=== PATIENT | female | born 1965 | race Hispanic/Latino ===

== ENCOUNTER 2018-04-29 10:18 | Emergency (ER) | payer MEDICARE, MEDICAID ==
[~2018-04-29] VITALS: Ht 152.4 cm; Wt 55.0 kg
[~2018-04-29 10:18] MED LIST: ALBUTEROL SUL0.083 % IN; AZITHROMYCIN500 MG PO; AZO DINE PO; CIPROFLOXACN500 MG PO; CLINDAMYCIN300 M1 PO; DIFLUCAN150 MG PO; FLEXERIL OR; LISINOPRIL5 MG PO; MACRODANTIN100 MG PO; MEDDOSEPAK PO; METFORMIN500 MG PO; MONISTAT 7 VA; NAPROSYN375 MG PO; NAPROXEN; OXYCODONE HCL5 MG PO; PCE500 MG OR; PRILOSEC20 MG/CAP PO; PROMETHAZINE25 MG OR; PYRIDIUM200 MG PO; TYLENOL # 31 TA1 PO; ULTRAM50 M1 PO; ULTRAM50 MG OR; VENTOLIN HFA IN; [UNRECOGNIZED DRUG - REMARK]; [UNRECOGNIZED DRUG - REMARK]
[2018-04-29 10:43] LABS: HEMATOCRIT 40.3 % (37.0-47.0); HEMOGLOBIN 13.2 g/dl (12.0-16.0); IMMATURE GRANULOCYTES 0.4 % (0.0-5.0); MEAN CORPUSCULAR HGB 30.1 pG CALC (26.0-32.0); MEAN CORPUSCULAR HGB CONC 32.8 g/L CALC (32.0-36.0); NEUT# 7.64 thou/uL (2.00-7.15); RED BLOOD COUNT 4.38 mill/uL (4.20-5.60); RED CELL DISTRI WIDTH 14.1 % (11.5-15.5)
[2018-04-29 11:13] LABS: ALBUMIN 4.1 g/dL (3.2-5.0); ALKALINE PHOSPHATASE 125 u/l (38-126); ANION GAP 11 (6-22 (CALC)); BILIRUBIN, TOTAL 0.5 mg/dL (0.0-1.4); BUN 24 mg/dL (7-17); BUN/CREATININE RATIO 50 (12-20 (CALC)); CARBON DIOXIDE 29 mmol/l (22-30); CHLORIDE 105 mmol/l (95-108); CPK 62 u/l (30-165); CREATININE 0.5 mg/dL (0.5-1.0); GFR > 60 ML/MIN (>=60 (CALC)); GFR FOR AFR.AMER. > 60 ML/MIN (>=60 (CALC)); LIPASE 101 u/l (23-300); SGOT/AST 23 u/l (14-36); SODIUM 141 mmol/l (137-146); TOTAL PROTEIN 7.3 g/dL (6.3-8.2)
[2018-04-29 11:16] LABS: ETHYL ALCOHOL 0 mg/dl (0-30)
[2018-04-29 11:23] LABS: MYOGLOBIN 22 ng/mL (0 - 62)
[2018-04-29 11:35] LABS: URINE BILIRUBIN - DIPSTICK NEGATIVE (NEGATIVE); URINE BLOOD DIPSTICK NEGATIVE (NEGATIVE); URINE COLOR YELLOW; URINE GLUCOSE - DIPSTICK NEGATIVE (NEGATIVE); URINE KETONE NEGATIVE (NEGATIVE); URINE PROTEIN - DIPSTICK NEGATIVE (NEG-TRACE); URINE SPECIFIC GRAVITY 1.025
[2018-04-29 11:37] LABS: URINE CLARITY SL CLOUDY; URINE LEUK ESTERASE LARGE (NEGATIVE); URINE NITRITE - DIPSTICK POSITIVE (Negative)
[2018-04-29 11:40] LABS: BARBITURATES NEGATIVE (NEGATIVE); COCAINE NEGATIVE (NEGATIVE); METHADONE NEGATIVE (NEGATIVE); OXCYCODONE NEGATIVE (NEGATIVE); TETRAHYDROCANNABIONOL NEGATIVE (NEGATIVE); TRICYLIC ANTIDEPRESSANTS NEGATIVE (NEGATIVE)
[2018-04-29 11:42] LABS: URINE BACTERIA MANY hpf; URINE TRANSITIONAL EPI. CELLS FEW hpf; URINE WBC 50-100 WBC/hpf (0-5)
[2018-04-29 11:43] LABS: URINE SQUAMOUS EPITHELIAL CELL MODERATE EPI/hpf (0-FEW)
[2018-04-29] MEDS ORDERED: BACTRIM DS1 TAB PO (12:01)
[2018-04-29 12:06] VITALS: BP 158/74
== END 2018-04-29 12:13 | disposition home or self-care (01) ==
LOC: ED 10:18
PROVIDERS: Family Medicine
DX: F15.10 Other stimulant abuse, uncomplicated (principal); N39.0 Urinary tract infection, site not specified; B95.61 Methicillin susceptible Staphylococcus aureus infection as the cause of diseases classified elsewhere; R41.82 Altered mental status, unspecified; Y92.481 Parking lot as the place of occurrence of the external cause; F17.200 Nicotine dependence, unspecified, uncomplicated; E11.9 Type 2 diabetes mellitus without complications

== ENCOUNTER → 2018-09-05 | Outpatient (REF) | payer OTHER ==
[~2018-09-05] MED LIST changes: +BACTRIM DS1 TAB PO; +CALCIUM600 M3 PO; +FUROSEMIDE20 MG PO; +HUMALOG100 UNIT/M SC; +K-DUR/KLOR-CON20 MEQ PO; +LANTUS100 UNIT/M SC; +MAGNESIUM500 M1 PO; +METOPROL TAR25 MG PO; +SERTRALINE HCL50 MG PO; +STOOL SOFTNR100 M1 PO; +TYLENOL 500MG TAB PO; +WARFARIN5 MG PO; +WARFARIN7.5 MG PO
== END | disposition home or self-care (01) | DRG 917 ==
LOC: LABSPEC 05:03
PROVIDERS: ATTEND Internal Medicine
DX: T36.95XA Adverse effect of unspecified systemic antibiotic, initial encounter (principal); A41.9 Sepsis, unspecified organism; Z79.2 Long term (current) use of antibiotics

== ENCOUNTER → 2018-09-09 | Outpatient (REF) | payer OTHER | END | disposition home or self-care (01) | DRG 195 | LOC: LABSPEC-NH 14:52 | PROVIDERS: ATTEND Internal Medicine | DX: J18.9 Pneumonia, unspecified organism (principal) ==

== ENCOUNTER → 2018-09-11 | Outpatient (REF) | payer OTHER | END | disposition home or self-care (01) | DRG 950 | LOC: LABSPEC 18:34 | PROVIDERS: ATTEND Internal Medicine | DX: Z51.81 Encounter for therapeutic drug level monitoring (principal); Z79.2 Long term (current) use of antibiotics ==

== ENCOUNTER → 2018-09-14 | Outpatient (REF) | payer OTHER ==
[2018-09-14 12:03] LABS: PROTHROMBIN TIME 16.6 SECONDS (9.0-12.5)
[2018-09-14 12:04] LABS: INTERNATIONAL NORMALIZED RATIO 1.6 RATIO (0.7-1.3)
== END | disposition home or self-care (01) | DRG 310 ==
LOC: LABSPEC-NH 11:36
PROVIDERS: ATTEND Internal Medicine
DX: I48.91 Unspecified atrial fibrillation (principal)

== ENCOUNTER 2018-09-21 10:41 | Inpatient (IN) | payer MEDICARE, MEDICAID ==
[2018-09-21] VITALS (10 sets, daily range): BP systolic 91–124; BP diastolic 65–83
[~2018-09-21] VITALS: Ht 152.4 cm; Wt 62.0 kg
[~2018-09-21 10:41] MED LIST changes: -CALCIUM600 M3 PO; -FUROSEMIDE20 MG PO; -HUMALOG100 UNIT/M SC; -K-DUR/KLOR-CON20 MEQ PO; -LANTUS100 UNIT/M SC; -MAGNESIUM500 M1 PO; -METOPROL TAR25 MG PO; -SERTRALINE HCL50 MG PO; -STOOL SOFTNR100 M1 PO; -TYLENOL 500MG TAB PO; -WARFARIN5 MG PO; -WARFARIN7.5 MG PO
[2018-09-21] MEDS ORDERED: STOOL SOFTNR100 M1 PO (11:05)
[2018-09-21] MEDS ORDERED: SERTRALINE HCL50 MG PO (11:06)
[2018-09-21] MEDS ORDERED: FUROSEMIDE20 MG PO (11:07)
[2018-09-21] MEDS ORDERED: LANTUS100 UNIT/M SC (11:07)
[2018-09-21] MEDS ORDERED: CALCIUM600 M3 PO (11:08)
[2018-09-21] MEDS ORDERED: MAGNESIUM500 M1 PO (11:09)
[2018-09-21] MEDS ORDERED: HUMALOG100 UNIT/M SC (11:10)
[2018-09-21] MEDS ORDERED: METOPROL TAR25 MG PO (11:11)
[2018-09-21] MEDS ORDERED: WARFARIN5 MG PO (11:12)
[2018-09-21] MEDS ORDERED: K-DUR/KLOR-CON20 MEQ PO (11:12)
[2018-09-21] MEDS ORDERED: TYLENOL 500MG TAB PO (11:13)
[2018-09-21 11:17] LABS: HEMATOCRIT 34.9 % (37.0-47.0); IMMATURE GRANULOCYTES 0.7 % (0.0-5.0); MEAN CELL VOLUME 88.6 fL CALC (80.0-100.0); MEAN CORPUSCULAR HGB 28.2 pG CALC (26.0-32.0); MEAN CORPUSCULAR HGB CONC 31.8 g/L CALC (32.0-36.0); NEUT# 17.74 thou/uL (2.00-7.15); RED BLOOD COUNT 3.94 mill/uL (4.20-5.60); RED CELL DISTRI WIDTH 16.8 % (11.5-15.5)
[2018-09-21 11:27] LABS: HEMOGLOBIN 11.1 g/dl (12.0-16.0)
[2018-09-21 11:38] LABS: INTERNATIONAL NORMALIZED RATIO 2.2 RATIO (0.7-1.3); PROTHROMBIN TIME 22.4 SECONDS (9.0-12.5)
[2018-09-21 11:39] LABS: ALBUMIN 4.2 g/dL (3.2-5.0); ALKALINE PHOSPHATASE 125 u/l (38-126); ANION GAP 19 (6-22 (CALC)); BILIRUBIN, TOTAL 1.1 mg/dL (0.0-1.4); BUN 20 mg/dL (7-17); BUN/CREATININE RATIO 28 (12-20 (CALC)); CARBON DIOXIDE 22 mmol/l (22-30); CHLORIDE 98 mmol/l (95-108); CREATININE 0.7 mg/dL (0.5-1.0); GFR > 60 ML/MIN (>=60 (CALC)); GFR FOR AFR.AMER. > 60 ML/MIN (>=60 (CALC)); SGOT/AST 32 u/l (14-36); SODIUM 135 mmol/l (137-146); TOTAL PROTEIN 8.5 g/dL (6.3-8.2)
[2018-09-21 11:51] LABS: C-REACTIVE PROTEIN 21.6 mg/dL (0-0.9)
[2018-09-21 13:09] LABS: URINE BILIRUBIN - DIPSTICK NEGATIVE (NEGATIVE); URINE BLOOD DIPSTICK NEGATIVE (NEGATIVE); URINE COLOR YELLOW; URINE GLUCOSE - DIPSTICK NEGATIVE (NEGATIVE); URINE KETONE NEGATIVE (NEGATIVE); URINE LEUK ESTERASE TRACE (NEGATIVE); URINE NITRITE - DIPSTICK NEGATIVE (Negative); URINE PROTEIN - DIPSTICK TRACE mg/dL (NEG-TRACE); URINE UROBILINOGEN - DIPSTICK 0.2 E.U./dL (0.2)
[2018-09-21 13:11] LABS: BARBITURATES NEGATIVE (NEGATIVE); COCAINE NEGATIVE (NEGATIVE); METHADONE NEGATIVE (NEGATIVE); OXCYCODONE NEGATIVE (NEGATIVE); TETRAHYDROCANNABIONOL NEGATIVE (NEGATIVE); TRICYLIC ANTIDEPRESSANTS NEGATIVE (NEGATIVE)
[2018-09-21] MEDS ORDERED: WARFARIN7.5 MG PO (15:35)
[2018-09-22] VITALS (18 sets, daily range): BP systolic 100–145; BP diastolic 62–90
[2018-09-22 05:35] LABS: HEMOGLOBIN 10.2 g/dl (12.0-16.0); IMMATURE GRANULOCYTES 0.5 % (0.0-5.0); MEAN CELL VOLUME 88.2 fL CALC (80.0-100.0); MEAN CORPUSCULAR HGB 28.1 pG CALC (26.0-32.0); MEAN CORPUSCULAR HGB CONC 31.9 g/L CALC (32.0-36.0); NEUT# 14.21 thou/uL (2.00-7.15); RED BLOOD COUNT 3.63 mill/uL (4.20-5.60)
[2018-09-22 05:42] LABS: ALKALINE PHOSPHATASE 104 u/l (38-126); AMYLASE < 30 u/l (30-110); ANION GAP 12 (6-22 (CALC)); BUN 13 mg/dL (7-17); BUN/CREATININE RATIO 24 (12-20 (CALC)); CARBON DIOXIDE 21 mmol/l (22-30); CHLORIDE 105 mmol/l (95-108); CREATININE 0.5 mg/dL (0.5-1.0); GFR > 60 ML/MIN (>=60 (CALC)); GFR FOR AFR.AMER. > 60 ML/MIN (>=60 (CALC)); LIPASE 126 u/l (23-300); MAGNESIUM 1.5 mg/dL (1.6-2.3); POTASSIUM 3.7 mmol/l (3.5-5.1); SGOT/AST 20 u/l (14-36); SODIUM 135 mmol/l (137-146)
[2018-09-22 05:53] LABS: ALBUMIN 3.1 g/dL (3.2-5.0); TOTAL PROTEIN 6.4 g/dL (6.3-8.2)
[2018-09-22 14:17] LABS: PROTHROMBIN TIME 31.2 SECONDS (9.0-12.5)
[2018-09-23] VITALS (18 sets, daily range): BP systolic 123–166; BP diastolic 69–94
[2018-09-23 01:33] LABS: HEMATOCRIT 32.2 % (37.0-47.0); HEMOGLOBIN 10.1 g/dl (12.0-16.0); IMMATURE GRANULOCYTES 0.3 % (0.0-5.0); MEAN CORPUSCULAR HGB 27.9 pG CALC (26.0-32.0); MEAN CORPUSCULAR HGB CONC 31.4 g/L CALC (32.0-36.0); NEUT# 11.24 thou/uL (2.00-7.15); RED BLOOD COUNT 3.62 mill/uL (4.20-5.60); RED CELL DISTRI WIDTH 16.9 % (11.5-15.5)
[2018-09-23 01:46] LABS: INTERNATIONAL NORMALIZED RATIO 3.3 RATIO (0.7-1.3); PROTHROMBIN TIME 33.8 SECONDS (9.0-12.5)
[2018-09-23 01:52] LABS: ALBUMIN 3.4 g/dL (3.2-5.0); ALKALINE PHOSPHATASE 112 u/l (38-126); ANION GAP 15 (6-22 (CALC)); BILIRUBIN, TOTAL 0.8 mg/dL (0.0-1.4); BUN 10 mg/dL (7-17); BUN/CREATININE RATIO 20 (12-20 (CALC)); CARBON DIOXIDE 19 mmol/l (22-30); CHLORIDE 106 mmol/l (95-108); CREATININE 0.5 mg/dL (0.5-1.0); GFR > 60 ML/MIN (>=60 (CALC)); GFR FOR AFR.AMER. > 60 ML/MIN (>=60 (CALC)); MAGNESIUM 1.6 mg/dL (1.6-2.3); POTASSIUM 3.5 mmol/l (3.5-5.1); SGOT/AST 21 u/l (14-36); SODIUM 136 mmol/l (137-146); TOTAL PROTEIN 7.1 g/dL (6.3-8.2)
[2018-09-24] VITALS (10 sets, daily range): BP systolic 100–149; BP diastolic 60–85
[2018-09-24 04:35] LABS: HEMOGLOBIN 9.2 g/dl (12.0-16.0); IMMATURE GRANULOCYTES 0.3 % (0.0-5.0); MEAN CELL VOLUME 87.6 fL CALC (80.0-100.0); MEAN CORPUSCULAR HGB 27.8 pG CALC (26.0-32.0); MEAN CORPUSCULAR HGB CONC 31.7 g/L CALC (32.0-36.0); NEUT# 6.27 thou/uL (2.00-7.15); RED BLOOD COUNT 3.31 mill/uL (4.20-5.60)
[2018-09-24 04:58] LABS: ALBUMIN 3.1 g/dL (3.2-5.0); ALKALINE PHOSPHATASE 106 u/l (38-126); ANION GAP 14 (6-22 (CALC)); BILIRUBIN, TOTAL 0.7 mg/dL (0.0-1.4); BUN 8 mg/dL (7-17); BUN/CREATININE RATIO 18 (12-20 (CALC)); CARBON DIOXIDE 21 mmol/l (22-30); CHLORIDE 107 mmol/l (95-108); CREATININE 0.5 mg/dL (0.5-1.0); GFR > 60 ML/MIN (>=60 (CALC)); GFR FOR AFR.AMER. > 60 ML/MIN (>=60 (CALC)); MAGNESIUM 1.6 mg/dL (1.6-2.3); SGOT/AST 22 u/l (14-36); SODIUM 138 mmol/l (137-146); TOTAL PROTEIN 6.3 g/dL (6.3-8.2)
== END 2018-09-24 13:50 | DRG 314 ==
LOC: ED 10:41 → ED-I 13:40 → ED 14:58 → MS2 14:59 → ICU 16:36
PROVIDERS: Emergency Medicine; ADMIT Internal Medicine Nephrology; ATTEND Internal Medicine Nephrology
PROC: 3E02340 Introduction of Influenza Vaccine into Muscle, Percutaneous Approach (ICD-10-PCS; principal; 2018-09-24)
PROC: 3E0234Z Introduction of Serum, Toxoid and Vaccine into Muscle, Percutaneous Approach (ICD-10-PCS; 2018-09-24)
DX: T82.6XXA Infection and inflammatory reaction due to cardiac valve prosthesis, initial encounter (principal); A41.9 Sepsis, unspecified organism; I50.23 Acute on chronic systolic (congestive) heart failure; I38 Endocarditis, valve unspecified; I48.92 Unspecified atrial flutter; I11.0 Hypertensive heart disease with heart failure; I48.0 Paroxysmal atrial fibrillation; E11.9 Type 2 diabetes mellitus without complications; H91.90 Unspecified hearing loss, unspecified ear; F81.9 Developmental disorder of scholastic skills, unspecified; I95.9 Hypotension, unspecified; D63.8 Anemia in other chronic diseases classified elsewhere; K59.00 Constipation, unspecified; Y83.1 Surgical operation with implant of artificial internal device as the cause of abnormal reaction of the patient, or of later complication, without mention of misadventure at the time of the procedure; Z95.2 Presence of prosthetic heart valve; Z95.0 Presence of cardiac pacemaker; Z23 Encounter for immunization; Z88.0 Allergy status to penicillin
CPT/HCPCS: J0692; J1160

== ENCOUNTER → 2018-10-13 | Outpatient (REF) | payer MEDICARE, MEDICAID ==
[~2018-10-13] MED LIST changes: +CALCIUM600 M3 PO; +FUROSEMIDE20 MG PO; +HUMALOG100 UNIT/M SC; +K-DUR/KLOR-CON20 MEQ PO; +LANTUS100 UNIT/M SC; +MAGNESIUM500 M1 PO; +METOPROL TAR25 MG PO; +SERTRALINE HCL50 MG PO; +STOOL SOFTNR100 M1 PO; +TYLENOL 500MG TAB PO; +WARFARIN5 MG PO; +WARFARIN7.5 MG PO
[2018-10-13 14:51] LABS: INTERNATIONAL NORMALIZED RATIO 6.6 RATIO (0.7-1.3); PROTHROMBIN TIME 68.4 SECONDS (9.0-12.5)
== END | disposition home or self-care (01) ==
LOC: LABSPEC 14:18
PROVIDERS: ATTEND Internal Medicine
DX: Z51.81 Encounter for therapeutic drug level monitoring (principal); Z79.01 Long term (current) use of anticoagulants

== ENCOUNTER 2022-12-09 20:53 | Inpatient (IN) | payer MEDICARE, MEDICAID ==
[2022-12-09] VITALS (12 sets, daily range): BP systolic 117–153; BP diastolic 58–111
[~2022-12-09] VITALS: Ht 152.4 cm; Wt 68.0 kg
[2022-12-09 21:54] LABS: BASO% 0.4 % (0-3); EOS% 2.9 % (0-8); HEMATOCRIT 38.3 % (37.0-47.0); HEMOGLOBIN 11.7 g/dl (12.0-16.0); IMMATURE GRANULOCYTES 0.9 % (0.0-5.0); LYMPH% 15.8 % (15-41); MEAN CORPUSCULAR HGB 29.3 pG CALC (26.0-32.0); MEAN CORPUSCULAR HGB CONC 30.5 g/dL CAL (32.0-36.0); MONO% 8.3 % (2-13); NEUT# 5.72 thou/uL (2.00-7.15); NEUT% 71.7 % (42-76); RED CELL DISTRI WIDTH 18.2 % (11.5-15.5)
[2022-12-09 21:56] LABS: MEAN CELL VOLUME 95.8 fL CALC (80.0-100.0)
[2022-12-09 22:09] LABS: INTERNATIONAL NORMALIZED RATIO 1.3 RATIO (0.7-1.3); PROTHROMBIN TIME 12.4 SECONDS (9.0-12.5)
[2022-12-09 22:10] LABS: ALBUMIN 3.5 g/dL (3.2-5.0); ALKALINE PHOSPHATASE 210 u/l (38-126); ANION GAP 13 (6-22 (CALC)); BILIRUBIN, TOTAL 0.7 mg/dL (0.02-1.3); BUN 15 mg/dL (7-17); BUN/CREATININE RATIO 24 (12-20 (CALC)); CARBON DIOXIDE 26 mmol/l (22-30); CHLORIDE 99 mmol/l (95-108); CREATININE 0.6 mg/dL (0.5-1.0); GFR FOR AFR.AMER. > 60 ML/MIN (>=60 (CALC)); GFR OTHER RACES > 60 ML/MIN (>=60 (CALC)); POTASSIUM 4.4 mmol/l (3.5-5.1); SGOT/AST 36 u/l (14-36); SODIUM 134 mmol/l (137-146); TOTAL PROTEIN 6.9 g/dL (6.3-8.2)
[2022-12-09 22:11] LABS: MAGNESIUM 1.7 mg/dL (1.6-2.3)
[2022-12-09 22:44] LABS: TSH, 3RD GENERATION 2.77 uIU/mL (0.47 - 4.68)
[2022-12-10] VITALS (196 sets, daily range): BP systolic 72–188; BP diastolic 43–125
--- NOTE | 2022-12-10 01:00 | NUR ---
PATIENT ARRIVED TO THE UNIT VIA STRETCHER. PATIENT NOTED VERY LETHARGIC. SHE A/0 X 3. SHE IS ON O2 @ 3L VIA NC. #20 NOTED TO THE RIGHT AC RUNNING CARDIDEM AT 10. BOWEL SOUNDS ACTIVE, EDEMA NOTED TO BILATERAL LOWER EXTREMITIES, JYOTI EXTREMETIES NOTED WEEPING. SHE COMPLAINS OF DISCOMFORT OF JYOTI LOWER EXTREMETIES. WILL CONTINUE TO MONITOR.
[2022-12-10 01:41] LABS: URINE BILIRUBIN - DIPSTICK NEGATIVE (NEGATIVE); URINE BLOOD DIPSTICK NEGATIVE (NEGATIVE); URINE COLOR YELLOW; URINE GLUCOSE - DIPSTICK >=1000 mg/dL (NEGATIVE); URINE KETONE NEGATIVE (NEGATIVE); URINE LEUK ESTERASE NEGATIVE (NEGATIVE); URINE NITRITE - DIPSTICK NEGATIVE (Negative); URINE PROTEIN - DIPSTICK NEGATIVE (NEG-TRACE); URINE UROBILINOGEN - DIPSTICK 0.2 E.U./dL (0.2)
--- NOTE | 2022-12-10 02:00 | NUR ---
PATIENT NOTED LYING IN BED RESTING WITH NO ACUTE DISTRESS NOTED AT THIS TIME. WILL CONTINUE TO MONITOR.
--- NOTE | 2022-12-10 04:00 | NUR ---
PATIENT NOTED LYING IN BED RESTING COMFORTABLY WITH NO ACUTE DISTRESS NOTED. WILL CONTINUE TO MONITOR.
--- NOTE | 2022-12-10 06:55 | NUR ---
Nurse was getting report this am when nurse look at tele monitor and patient was in a torsades rhythm, nurse run to patient and ask night nurse to call a code on patient. code cart to room pads applied and CPR started.
--- NOTE | 2022-12-10 08:20 | NUR ---
0708 responded to code blue called patient noted to be in torsades. Prior to being able to pull magnesium per ACLS protocol patient went into vfib 0710 vfib, chest compressions started 0714 epinephrine adminstered 0716 vfib, shock delivered at 120 joules, 0717 ROSC 0718 20mg amidate admistered by ED MD, 100mg succunylcholine adminstered 0720 2 grams magnesium hung IV, amiodarone bolus hung IV, rate 136 afib 0721 Patient intubated by ED MD 7.5 fr and 24@ the lip positive color change on co2 detector and auscultation 0731 patient placed on ventilator 0733 I/O placed 25mm left tibia positive return noted and flushed space open with 10ml of 0.9% sodium chloride 0740 diprivan initiated starting rate of 30mcg/kg/min 0743 50mcg fentanyl and 50 mg rocuronium adminstered iv push 0745 Triple lumen femoral line attempted by ED MD without success. 0820 triple lumen r. subclavin placed by Dr. Baker
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
--- NOTE | 2022-12-10 14:54 | NUR ---
Dr. Alves called back , via tele consult.
--- NOTE | 2022-12-10 17:58 | NUR ---
glass sagger call in tele consult with patient trav nurse at bedside
--- NOTE | 2022-12-10 20:00 | NUR ---
PATIENT NOTED LYING IN BED WITH NO ACUTE DISTRESS NOTED. SHE IS NOTED ON THE VENTILATOR SEDATED. TRIPPLE LUMEN NOTED IN RIGHT SUBCLAVIAN. SITE CLEAN DRY AND INTACT. PROP NOTED RUNNING AT 70, LEVO RUNNING AT 4, AND AMIODORONE NOTED RUNNING AT 0.5. LUNGS CLEAR, BOWELS ACTIVE. I/O NOTED IN LEFT LEG. WILL CONTINUE TO MONITOR.
--- NOTE | 2022-12-10 22:00 | NUR ---
PATIENT NOTED LYING IN BED WITH NO ACUTE DISTRESS NOTED. WILL CONTINUE TO MONITOR.
[2022-12-10 23:32] LABS: URINE BILIRUBIN - DIPSTICK NEGATIVE (NEGATIVE); URINE BLOOD DIPSTICK NEGATIVE (NEGATIVE); URINE CLARITY CLEAR; URINE COLOR YELLOW; URINE GLUCOSE - DIPSTICK NEGATIVE (NEGATIVE); URINE KETONE NEGATIVE (NEGATIVE); URINE LEUK ESTERASE NEGATIVE (Negative); URINE NITRITE - DIPSTICK NEGATIVE (Negative); URINE PROTEIN - DIPSTICK NEGATIVE (NEG-TRACE); URINE SPECIFIC GRAVITY <=1.005; URINE UROBILINOGEN - DIPSTICK 0.2 E.U./dL (0.2)
[2022-12-11] VITALS (141 sets, daily range): BP systolic 32–182; BP diastolic 12–109
--- NOTE | 2022-12-11 01:29 | NUR ---
PATIENT WENT INTO VTACH PULSE NOTED ON MONITOR IN 230S. CODE WAS CALLED, PULSE WAS CHECKED. PATIENT NEVER LOST PULSE. DR. DOWNS, ADVENTURE THERAPIST AND CODE TEAM AT THE BEDSIDE. PATIENT SPONTANEOUSLY CONVERTED. NO COMPRESSIONS GIVEN.
--- NOTE | 2022-12-11 01:53 | NUR ---
PATIENT WENT INTO VTACH, CODE CALLED. NO PULSE NOTED. CPR WAS STARTED, ONE SHOCK WAS GIVEN. ROSC NOTED, DR. DOWNS, DESKIDDING MACHINE OPERATOR, AND CODE TEAM AT BED SIDE. MD ORDERED AMIODORONE BOLUS TO BE GIVEN. WILL CONTINUE TO MONITOR.
--- NOTE | 2022-12-11 02:54 | NUR ---
0129 CODE BLUE CALLED related to pt had extended run of v tach pt never lost pulse just weak and thready converted to paced rhythm with strong pulse, code blue all clear. 0153 CODE BLUE CALLED pt again in V-tach rate 200+ pulseless, compressions started pads already in place shock advised and delivered at 120J's with rhythm conversion and retunr of strong pulse 0205 Dr. York notified of above and instructed to start transfer process to [facility] if possible 0207 Call placed to [facility] transfer center, [place] with [facility], face sheet faxed per their request and information provided regarding pt situation and occurences, [facility] to see if they can move pt's around toobtain ICU bed. Provided [facility] with Dr. York cell phone number for report. 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 0243 Pt appliance tester that performed pacemaker placement is believed to be Dr. Bernal at [facility] in [place] called their [facility] center and provided with information and request for transfer there for Cardiology services, Per Kristy she will place calls and see if she can obtain placement and call us back.
--- NOTE | 2022-12-11 03:11 | NUR ---
Pts mother calls and gives verbal permission via telephone to speak with patients son Minh Eli and update him regarding everything that is happening with patient. Awaiting call back from son.
--- NOTE | 2022-12-11 03:18 | NUR ---
TRANSFER CENTER CALLED AND STATED [facility] HAD NO ICU BEDS AVAILABLE.
--- NOTE | 2022-12-11 06:00 | NUR ---
PATIENT LYING IN BED RESTING COMFORTABLY WITH NO ACUTE DISTRESS NOTED. [facility] CALLED TO CHECK AND SEE IF PATIENT HAS PLACEMENT. [facility] ALSO CONTACTED AND INFORMATION FAXED. NO ACCEPTANCE NOTED AT THIS TIME.
[2022-12-11 06:02] LABS: MEAN CELL VOLUME 90.9 fL CALC (80.0-100.0); MEAN CORPUSCULAR HGB CONC 31.9 g/dL CAL (32.0-36.0); RED BLOOD COUNT 4.97 mill/uL (4.20-5.60); RED CELL DISTRI WIDTH 17.6 % (11.5-15.5)
[2022-12-11 06:07] LABS: HEMATOCRIT 45.2 % (37.0-47.0); HEMOGLOBIN 14.4 g/dl (12.0-16.0)
[2022-12-11 06:35] LABS: ALBUMIN 3.6 g/dL (3.2-5.0); ALKALINE PHOSPHATASE 182 u/l (38-126); BUN 17 mg/dL (7-17); BUN/CREATININE RATIO 23 (12-20 (CALC)); CHLORIDE 90 mmol/l (95-108); CREATININE 0.7 mg/dL (0.5-1.0); GFR FOR AFR.AMER. > 60 ML/MIN (>=60 (CALC)); GFR OTHER RACES > 60 ML/MIN (>=60 (CALC)); MAGNESIUM 1.8 mg/dL (1.6-2.3); SGOT/AST 55 u/l (14-36); SODIUM 136 mmol/l (137-146); TOTAL PROTEIN 7.5 g/dL (6.3-8.2)
[2022-12-11 06:39] LABS: ANION GAP 10 (6-22 (CALC)); BILIRUBIN, TOTAL 1.3 mg/dL (0.02-1.3); CARBON DIOXIDE 39 mmol/l (22-30); POTASSIUM 2.7 mmol/l (3.5-5.1)
--- NOTE | 2022-12-11 07:00 | NUR ---
rcd report from nightshift. pt extremely unstable. pt has subclavian right triple lumen in place, left io, and right 20 ac. currently running prop at 60, levo at 2, and amio at 0.5. pt is intubated fio2 40, tv 400, peep, 5, rr 18. lungs are diminshed. pupils are non reactive. no reflexes. mom at bedside. edema bilat lower extremetries. pulses faint. attempting to transfer pt, [facility], [facility], [facility]. R on T phenomenon. Per mother, daughter has a pacemaker unknown what kind.
--- NOTE | 2022-12-11 07:30 | NUR ---
og tube advanced 10 cm per radiologist
--- NOTE | 2022-12-11 07:42 | NUR ---
called [facility] and spoke to jamie, gave opt information
--- NOTE | 2022-12-11 08:00 | NUR ---
at bedside. encouraging transfer to another facility
--- NOTE | 2022-12-11 08:05 | NUR ---
called [facility] and spoke to lux. per lux, [facility] is full.
--- NOTE | 2022-12-11 08:09 | NUR ---
called [facility] and gave pt info, awaiting response
--- NOTE | 2022-12-11 08:45 | NUR ---
[facility] declined due to pt stability
--- NOTE | 2022-12-11 10:00 | NUR ---
pt presents with an episode od torsades, pt converts out of it into a paced rhythm on her own.
--- NOTE | 2022-12-11 10:05 | NUR ---
shock initiated at 120 joules, rhythm controlled
--- NOTE | 2022-12-11 10:07 | NUR ---
shock initiated at 120 joules, rhythm controlled
--- NOTE | 2022-12-11 10:10 | NUR ---
shock initiated at 120 joules, rhythm, controlled
--- NOTE | 2022-12-11 10:12 | NUR ---
shock initiated at 120 joules, rhythm controlled
--- NOTE | 2022-12-11 10:20 | NUR ---
shock initiated at 120 joules, rhythm controlled
--- NOTE | 2022-12-11 10:21 | NUR ---
shock initiated at 120 joules, rhythm controlled. pacer noted.
--- NOTE | 2022-12-11 11:16 | NUR ---
new right io initiated due to needing more iv access.
--- NOTE | 2022-12-11 12:00 | NUR ---
amio bolus given lidocaine bolus given lidocaine drip initiated pt is now on 4 of levo amio increased to 1 prop still at 60 abx treatment given mother at bedside, educated at status
--- NOTE | 2022-12-11 12:36 | NUR ---
ET TUBE ADVANCED 3CM PER X-RAY.
--- NOTE | 2022-12-11 13:00 | NUR ---
spoke to son, is coming to hospital, discussing dnr with him. pt currently stable.
--- NOTE | 2022-12-11 14:00 | NUR ---
SON AT BEDSIDE, EXPLAINED CONDITION TO HIM, NO CHANGE IN STATUS AT THIS MOMENT.
--- NOTE | 2022-12-11 15:00 | NUR ---
no change in status. family aware of situation. family discussing DNR status
--- NOTE | 2022-12-11 16:00 | NUR ---
pt is stable at the moment. family at bedside.
--- NOTE | 2022-12-11 17:00 | NUR ---
mom and friend at bedside. no change in status.
--- NOTE | 2022-12-11 18:04 | NUR ---
family just left bedside. rt in room. no change in status.
--- NOTE | 2022-12-11 20:36 | NUR ---
RECEIVED CALL FROM [facility] FROM [place] WITH ACCEPTING , [facility]. PT WILL BE GOING TO BED 8, PHONE . COLLEGE SCOUTING COORDINATOR CALLED AND NOTIFIED [facility] AND ETA FOR [employer] [employer] [facility] IS 2119. [facility] WAS NOTIFIED OF ETA [employer] [employer] [facility]. WILL CALL RECEIVING NADINE REPORT AND WILL CONTINUE TO MONITOR PT.
--- NOTE | 2022-12-11 21:30 | NUR ---
Pt's mother contacted via telephone to obtain consent for trasnfer to [facility] via [facility], consent given confirmed by 2nd RN Denice Jefferson RN Paperwork completed accordingly.
--- NOTE | 2022-12-11 21:40 | NUR ---
CALLED [facility] AND GAVE RECEIVING ELOISA BERRIOS, REPORT AND APPROXIMATE ETA OF 23 MIN.
--- NOTE | 2022-12-11 21:40 | NUR ---
Pt's son calls aware of planned/in-process transfer to [facility] son says thank you and hangs up.
--- NOTE | 2022-12-11 22:27 | NUR ---
[facility] ARRIVED AT 2129 AND BEGAN PREPARING THE PT FOR TRANSPORT. MYSELF AND MEAT PUMPER FINISHED PAPERWORK. [facility] LEFT WITH PT AT 2226.
--- NOTE | 2022-12-12 13:00 | NUR ---
Final sputum culture results called and faxed to nurse Gisele at [facility].
== END 2022-12-11 22:27 | DRG 291 ==
LOC: ED 20:53 → ICU 23:18
PROVIDERS: Family Medicine; Internal Medicine; ADMIT Internal Medicine; ATTEND Internal Medicine
PROC: 5A12012 Performance of Cardiac Output, Single, Manual (ICD-10-PCS; principal; 2022-12-10)
PROC: 0BH17EZ Insertion of Endotracheal Airway into Trachea, Via Natural or Artificial Opening (ICD-10-PCS; 2022-12-10)
PROC: 5A1945Z Respiratory Ventilation, 24-96 Consecutive Hours (ICD-10-PCS; 2022-12-10)
PROC: 3E033XZ Introduction of Vasopressor into Peripheral Vein, Percutaneous Approach (ICD-10-PCS; 2022-12-10)
PROC: 02HV33Z Insertion of Infusion Device into Superior Vena Cava, Percutaneous Approach (ICD-10-PCS; 2022-12-10)
PROC: 5A12012 Performance of Cardiac Output, Single, Manual (ICD-10-PCS; 2022-12-11)
DX: I11.0 Hypertensive heart disease with heart failure (principal); I46.2 Cardiac arrest due to underlying cardiac condition; I50.23 Acute on chronic systolic (congestive) heart failure; J96.01 Acute respiratory failure with hypoxia; R57.0 Cardiogenic shock; J18.9 Pneumonia, unspecified organism; I49.01 Ventricular fibrillation; J44.1 Chronic obstructive pulmonary disease with (acute) exacerbation; E87.1 Hypo-osmolality and hyponatremia; J44.0 Chronic obstructive pulmonary disease with (acute) lower respiratory infection; I48.92 Unspecified atrial flutter; I48.0 Paroxysmal atrial fibrillation; E11.65 Type 2 diabetes mellitus with hyperglycemia; F19.10 Other psychoactive substance abuse, uncomplicated; E87.6 Hypokalemia; I44.1 Atrioventricular block, second degree; T50.916A Underdosing of multiple unspecified drugs, medicaments and biological substances, initial encounter; Z91.128 Patient's intentional underdosing of medication regimen for other reason; Z95.0 Presence of cardiac pacemaker; Z79.4 Long term (current) use of insulin; Z95.2 Presence of prosthetic heart valve; Z86.79 Personal history of other diseases of the circulatory system; Z20.822 Contact with and (suspected) exposure to COVID-19
CPT/HCPCS: J0282; J0692; J1160; J1650; J3475; Q3014; S0164